=== PATIENT | male | born 1975 | race Caucasian/White ===

== ENCOUNTER 2018-09-14 07:40 | Emergency (ER) | payer MEDICAID, OTHER ==
[~2018-09-14] VITALS: Ht 172.7 cm; Wt 88.0 kg
[2018-09-14 07:43] VITALS: BP 152/79
--- NOTE | 2018-09-14 07:48 | NUR ---
PT AMBULATED TO BED 9
--- NOTE | 2018-09-14 07:50 | NUR ---
43 Y MALE BIB SELF C/O LACERATION TO L FOREARM. LACERATION APPROX 1 CM LONG. PT REPORTS CUTTING HIMSELF WITH A PIECE OF STEEL HE WAS WORKING WITH. BLEEDING IS CONTROLLED. DATE OF LAST TETANUS SHOT UNKNOWN. +CMS. VSS AT THIS TIME. PT [id number]. BED IS DOWN, LOCKED, BED RAIL X 1, ERMD TO SEE PT. HX: ANXIETY RX: HYDROXYZINE, ZOLOFT
--- NOTE | 2018-09-14 07:53 | NUR ---
PT GIVEN ICE PACK FOR COMFORT. BLEEDING CONTROLLED.
[2018-09-14] MEDS ORDERED: LIDOCAINE 1% 500 MG/50 ML VIAL INJ SCH (08:15)
[2018-09-14] MEDS ORDERED: IBUPROFEN 400 MG TAB PO ONE (08:15)
--- NOTE | 2018-09-14 08:22 | NUR ---
LACERATION TRAY, SUTURES, AND LIDOCAINE AT BEDSIDE
[2018-09-14] MEDS ORDERED: LIDOCAINE MPF 1% - 5 mL VIAL 5 ML ONE (08:30)
--- NOTE | 2018-09-14 08:35 | NUR ---
TDAP VACCINE AND MOTRIN ADMINISTERED BY STUDENT WITH INSTRUCTOR.
--- NOTE | 2018-09-14 08:42 | NUR ---
DR LAW AT BEDSIDE FOR LAC REPAIR
[2018-09-14] MEDS ORDERED: BACITRACIN OINT 500 UNITS/GM PKT TP ONE (09:05)
--- NOTE | 2018-09-14 09:12 | NUR ---
BACITRACIN PLACED ON SITE. SIMPLE DRESSING APPLIED TO L FOREARM.
--- NOTE | 2018-09-14 09:21 | NUR ---
PT INSTRUCTED TO KEEP DRESSING CLEAN AND CHANGE DAILY. PT PROVIDED WITH TAPE AND GAUZE FOR NEXT DRESSING CHANGE. PT FILLING OUT WORKERS COMP AT THIS TIME.
[2018-09-14 09:55] VITALS: BP 148/75
--- NOTE | 2018-09-14 09:55 | NUR ---
Patient discharged with v/s stable. Written and verbal after care instructions given and explained. Patient alert, oriented and verbalized understanding of instructions. Ambulatory with steady gait. All questions addressed prior to discharge. ID band removed. Patient advised to follow up with PMD. Rx of NAPROSYN given. Patient educated on indication of medication including possible reaction and side effects. Opportunity to ask questions provided and answered. PT INSTRUCTED TO RETURN IN 2 DAYS FOR WOUND CHECK AND 10 DAYS FOR SUTURE REMOVAL. PT INSTRUCTED THAT HE CAN RETURN TO WORK TODAY, CAN NOT LIFT OVER 5 POUNDS, AND MINIMAL WORK.
== END 2018-09-14 09:55 | disposition home or self-care (01) ==
LOC: MED 07:40
DX: S51.812A Laceration without foreign body of left forearm, initial encounter (principal); W20.8XXA Other cause of strike by thrown, projected or falling object, initial encounter; Y93.89 Activity, other specified; Y92.89 Other specified places as the place of occurrence of the external cause; Y99.8 Other external cause status
CPT/HCPCS: 12001; 90471; 90715; 99283; J2001